=== PATIENT | female | born 1950 | race Asian ===

== ENCOUNTER 2023-05-01 09:43 | Emergency (ER) | payer OTHER, MEDICAID ==
[~2023-05-01] VITALS: Ht 127 cm; Wt 46.7 kg
[2023-05-01 10:01] VITALS: BP 130/78; PULSE 80; RESP 20; TEMP 102.8; O2SAT 99
[2023-05-01] MEDS: ACETAMINOPHEN 650 MG/20.3 ML UDC PO ONE (10:23)
[2023-05-01 10:58] LABS: BASOPHILS % (AUTO) 0.5 % (0.0-2.0); EOSINOPHILS % (AUTO) 0.1 % (0.0-4.0); HEMATOCRIT 36.3 % (36-48); HEMOGLOBIN 12.6 g/dL (12.0-16.0); LYMPHOCYTES # (AUTO) 0.9 K/uL (2.5-16.5); LYMPHOCYTES % (AUTO) 14.7 % (20.5-51.1); MEAN CORPUSCULAR HEMOGLOBIN 30 pg (27-31); MEAN CORPUSCULAR HGB CONC 35 g/dL (33-37); MEAN CORPUSCULAR VOLUME 86.5 fL (80-94); MONOCYTES # (AUTO) 0.8 K/uL (0.8-1.0); MONOCYTES % (AUTO) 12.5 % (1.7-9.3); NEUTROPHILS # (AUTO) 4.7 K/uL (1.8-7.7); NEUTROPHILS % (AUTO) 72.2 % (42.2-75.2); PLATELET COUNT (AUTO) 201 K/uL (140-450); RED CELL DISTRIBUTION WIDTH 14.1 % (11.6-13.7); WHITE BLOOD COUNT (AUTO) 6.4 K/uL (4.8-10.8)
[2023-05-01 11:03] LABS: FLU A ANTIGEN negative (NEGATIVE); FLU B ANTIGEN negative (NEGATIVE)
[2023-05-01 11:05] LABS: ANION GAP 14.6 (8-16); CALCIUM 8.1 mg/dL (8.5-10.1); CARBON DIOXIDE 20.8 mmol/L (21-32); CHLORIDE 99 mmol/L (98-107); GLUCOSE 247 mg/dL (74-106); POTASSIUM 3.4 mmol/L (3.5-5.1); SODIUM SERUM 131 mmol/L (136-145); UREA NITROGEN, BLOOD 13 mg/dL (7-18)
[2023-05-01 11:11] LABS: BILIRUBIN,DIRECT 0.1 mg/dL (0.0-0.3); TOTAL BILIRUBIN 0.4 mg/dL (0.0-1.0); TOTAL PROTEIN, SERUM 9.1 g/dL (6.4-8.2)
[2023-05-01 13:04] VITALS: BP 125/62; PULSE 65; RESP 18; TEMP 97.9; O2SAT 97
[2023-05-01 13:12] LABS: APPEARANCE,URINE CLEAR (CLEAR); BILIRUBIN,URINE 1+ (NEGATIVE); BLOOD, URINE 3+ (NEGATIVE); COLOR,URINE YELLOW (YELLOW); LEUKOCYTE ESTERASE ,URINE NEGATIVE (NEGATIVE); NITRITE, URINE NEGATIVE (NEGATIVE); PH,URINE 6.5 (5.0-9.0); PROTEIN,URINE 2+ (NEGATIVE); UGLUCOSE TRACE (NEGATIVE); UROBILINOGEN,URINE 0.2 EU/dL (0.2 - 1)
[2023-05-01 13:19] LABS: ICTOTEST NEGATIVE (NEGATIVE)
[2023-05-01 13:20] LABS: BACTERIA,URINE OCCASSIONAL /HPF (None Seen); RBC,URINE 11-20 (MOD) /HPF (0-5); SQUAMOUS EPITHELIAL CELL,UR 0-3 (FEW) /LPF (0-3 (FEW)); WBC,URINE 0-5 /HPF (0-5)
[2023-05-01] MEDS ORDERED: CEPH-588 PO (13:34)
== END 2023-05-01 13:46 | disposition home or self-care (01) ==
LOC: MED 09:43
DX: N30.90 Cystitis, unspecified without hematuria (principal); Z20.822 Contact with and (suspected) exposure to COVID-19; E11.9 Type 2 diabetes mellitus without complications; Z79.2 Long term (current) use of antibiotics
CPT/HCPCS: 36415; 71045; 80048; 80076; 81001; 83605; 83690; 85025; 87040; 99284